=== PATIENT | male | born 1975 | race Caucasian/White ===

== ENCOUNTER → 2017-06-15 | Outpatient (CLI) | payer OTHER ==
[~2017-06-15] MED LIST: GADOBENATE DIMEGLUMINE 10 ML IV ONE; ISOVUE-M 200 20 ML VIAL IT ONE
== END | disposition home or self-care (01) ==
LOC: RAH 08:04
PROVIDERS: ATTEND General Practice
DX: M19.012 Primary osteoarthritis, left shoulder (principal)
CPT/HCPCS: 23350; 73223; 77002; A9577; Q9966

== ENCOUNTER 2018-07-16 08:54 | Day surgery (SDC) | payer OTHER ==
[2018-07-15 15:38] VITALS: BP 149/82
[2018-07-16] VITALS (14 sets, daily range): BP systolic 120–143; BP diastolic 65–93
[~2018-07-16 08:54] MED LIST changes: +AMLO10TA7 PO; +ASPI-555 PO; +ATOR-2 PO; +BUPR75TA8 PO; +FAMO-135 PO; -GADOBENATE DIMEGLUMINE 10 ML IV ONE; +IBUP-2071 PO; -ISOVUE-M 200 20 ML VIAL IT ONE; +MIRT30TA6 PO; +TRAZ-187 PO
[2018-07-16] MEDS ORDERED: LACTATED RINGERS 1000ML 1,000 ML IV ONE (09:26)
[2018-07-16] MEDS: CEFAZOLIN SODIUM 1 GM VIAL ONE ×2 (09:26→11:45)
--- NOTE | 2018-07-16 10:00 | NUR ---
SURGICAL PREP pt left shoulder clipper prepped and wiped with chlorhexidine 2% by Kelli Solis Addendum: 07/16/18 at 1244 by JERROD OCONNELL RN RN Amended: Links added.
[2018-07-16] MEDS ORDERED: EPINEPHRINE 1 MG/ML 30ML VIAL IJ ONE (11:11)
[2018-07-16] MEDS ORDERED: MIDAZOLAM HCL 1 MG/ML 2ML VIAL ONE (11:25)
[2018-07-16] MEDS ORDERED: SUCCINYLCHOLINE 200MG/10ML SYR ONE (11:25)
[2018-07-16] MEDS ORDERED: LIDOCAINE PF 2% 5ML ABBOJECT ONE (11:25)
[2018-07-16] MEDS ORDERED: NEOSTIGMINE 5MG/5ML SYR IV ONE (11:26)
[2018-07-16] MEDS ORDERED: ROCURONIUM 10MG/1ML SYR 10 MG/ML ML ONE ×2 (11:26→12:04)
[2018-07-16] MEDS ORDERED: ONDANSETRON HCL 4 MG/2 ML VIAL ONE (11:26)
[2018-07-16] MEDS ORDERED: PROPOFOL 10 MG/ML 20ML VIAL IV ONE (11:26)
[2018-07-16] MEDS ORDERED: FENTANYL CITRATE PF 50 MCG/1 ML 2ML VIAL ONE (11:27)
[2018-07-16] MEDS ORDERED: ROPIVACAINE 0.5% 5MG/ML 30ML IJ ONE ×2 (11:31→11:32)
[2018-07-16] MEDS ORDERED: GLYCOPYRROLATE 1 MG/5 ML SYRINGE ONE (12:01)
[2018-07-16] MEDS ORDERED: PHENYLEPHRINE HCL 10 MG/ML 1ML VIAL IV ONE (13:39)
[2018-07-16] MEDS ORDERED: TYL3 PO (13:47)
[2018-07-16] MEDS ORDERED: CEPH500B PO (13:47)
--- NOTE | 2018-07-16 15:02 | NUR ---
POST-PROCEDURE RECEIVED FROM RR VIA STRETCHER BY MARCIO RICHARDS S/P LEFT SHOULDER ARTHROSCOPY, SUBACROMIAL DECOMPRESSION, DISTAL CLAVICLE RESECTION, BURSECTOMY. AWAKE IN NO ACUTE DISTRESS. CONNECTED TO CONTINUOUS CARDIOPULMONARY MONITORING. ICE PACK APPLIED TO LEFT SHOULDER. ARM SLING IN PLACE TO LEFT ARM.
--- NOTE | 2018-07-16 15:55 | NUR ---
EDUCATION DR. FAITH INSTRUCTION SHEET, MED REC, AND PT EDUCATION REVIEWED WITH PT AND . BOTH VERBALIZED UNDERSTANDING. OPPORTUNITY GIVEN TO ASK QUESTIONS. NO QUESTIONS OR CONCERNS VERBALIZED.
--- NOTE | 2018-07-16 16:06 | NUR ---
DISCHARGE DISCHARGED VIA W/C. DENIES PAIN. LEFT ARM REMAINS IN SLING, DRESSING CD&I.
== END 2018-07-16 16:06 | disposition home or self-care (01) ==
LOC: DAH 08:54
PROVIDERS: ATTEND Orthopaedic Surgery
DX: M75.42 Impingement syndrome of left shoulder (principal); M19.012 Primary osteoarthritis, left shoulder; Z68.34 Body mass index [BMI] 34.0-34.9, adult; I10 Essential (primary) hypertension; E78.00 Pure hypercholesterolemia, unspecified; Z98.890 Other specified postprocedural states; K21.9 Gastro-esophageal reflux disease without esophagitis; F32.9 Major depressive disorder, single episode, unspecified; G43.909 Migraine, unspecified, not intractable, without status migrainosus; Z79.899 Other long term (current) drug therapy; G89.29 Other chronic pain; Z88.8 Allergy status to other drugs, medicaments and biological substances; E78.5 Hyperlipidemia, unspecified
CPT/HCPCS: 29824; 29826; 64415; A4565; A4600; A4649 ×3; A4930; A6204; G0168; J0171; J0330; J0690; J2001; J2250; J2370; J2405; J2704; J2710; J2795 ×2; J3010; J3490; J7030; J7120 ×2

== ENCOUNTER 2019-11-03 14:49 | Emergency (ER) | payer OTHER ==
[~2019-11-03 14:49] MED LIST changes: -ASPI-555 PO; +ASPI-556 PO; +CEPH500B PO; +TYL3 PO
[2019-11-03 15:28] LABS: BASOPHILS % (AUTO) 0.6 % (0.0-5.0); EOSINOPHILS % (AUTO) 1.8 % (0.0-8.0); HEMATOCRIT 40.8 % (42-54); LYMPHOCYTES % (AUTO) 21.3 % (21.0-51.0); MEAN CORPUSCULAR HEMOGLOBIN 29.5 pg (27.0-33.0); MEAN CORPUSCULAR HGB CONC 34.3 g/dL (32.0-36.0); MEAN CORPUSCULAR VOLUME 86.1 fL (79-99); MONOCYTES % (AUTO) 7.9 % (3.0-13.0); PLATELET COUNT (AUTO) 326 K/uL (130-400); RED BLOOD CELL COUNT(AUTO) 4.74 MIL/uL (4.50-6.20); RED CELL DISTRIBUTION WIDTH 13.4 % (11.0-15.5); WHITE BLOOD COUNT (AUTO) 9.7 K/uL (4.8-10.8)
[2019-11-03 15:36] LABS: CREATININE 1.2 mg/dL (0.5-1.5); POTASSIUM 3.5 mmol/L (3.5-5.1)
[2019-11-03 15:41] LABS: ALBUMIN 3.6 g/dL (3.5-5.0); BILIRUBIN,TOTAL 0.4 mg/dL (0.2-1.0); TOTAL PROTEIN, SERUM 7.4 g/dL (6.0-8.3)
== END 2019-11-03 17:44 | disposition home or self-care (01) ==
LOC: EDH 14:49
DX: M25.562 Pain in left knee (principal); I10 Essential (primary) hypertension; E78.00 Pure hypercholesterolemia, unspecified; Z72.0 Tobacco use; Z88.6 Allergy status to analgesic agent
CPT/HCPCS: 36415; 80053; 82550; 85025; 87040; 93971

== ENCOUNTER 2020-04-12 16:09 | Emergency (ER) | payer OTHER ==
[~2020-04-12 16:09] MED LIST changes: +AMLO-258 PO; -AMLO10TA7 PO
[2020-04-12 16:55] LABS: BASOPHILS % (AUTO) 0.6 % (0.0-5.0); EOSINOPHILS % (AUTO) 0.7 % (0.0-8.0); HEMATOCRIT 42.6 % (42-54); LYMPHOCYTES % (AUTO) 17.3 % (21.0-51.0); MEAN CORPUSCULAR HEMOGLOBIN 28.9 pg (27.0-33.0); MEAN CORPUSCULAR VOLUME 84.9 fL (79-99); MONOCYTES % (AUTO) 7.2 % (3.0-13.0); NEUTROPHILS % (AUTO) 73.9 % (40.0-77.0); PLATELET COUNT (AUTO) 279 K/uL (130-400); RED BLOOD CELL COUNT(AUTO) 5.02 MIL/uL (4.50-6.20); WHITE BLOOD COUNT (AUTO) 9.6 K/uL (4.8-10.8)
[2020-04-12 17:10] LABS: CREATININE 1.1 mg/dL (0.5-1.5); POTASSIUM 3.6 mmol/L (3.5-5.1)
[2020-04-12 17:13] LABS: INR 0.98 (0.85-1.15); PROTHROMBIN TIME 10.7 SEC (9.6-11.6)
[2020-04-12 17:24] LABS: ALBUMIN 3.6 g/dL (3.5-5.0); BILIRUBIN,TOTAL 1.8 mg/dL (0.2-1.0); TOTAL PROTEIN, SERUM 7.2 g/dL (6.0-8.3)
[2020-04-12 17:25] LABS: B-TYPE NATRIURETIC PEPTIDE 35 pg/mL (0-100)
[2020-04-12 18:03] LABS: APPEARANCE,URINE Clear (CLEAR); BILIRUBIN,URINE Negative (NEGATIVE); COLOR,URINE Yellow (YELLOW); GLUCOSE, URINE (UA) Negative (NEGATIVE); KETONES,URINE Negative (NEGATIVE); LEUKOCYTE ESTERASE ,URINE Negative (NEGATIVE); NITRATE,URINE Negative (NEGATIVE); OCCULT BLOOD,URINE Negative (NEGATIVE); PH,URINE 5.5 (5.0-8.0); PROTEIN,URINE Negative (NEGATIVE); UROBILINOGEN,URINE 0.2 mg/dL (0.2-1.0)
[2020-04-12 18:10] LABS: AMPHET/METH SCREEN,URINE NEGATIVE (NEGATIVE); BARBITURATE SCREEN, URINE NEGATIVE (NEGATIVE); BENZODIAZEPINES SCREEN,URINE NEGATIVE (NEGATIVE); CANNABINOID SCREEN,URINE NEGATIVE (NEGATIVE); COCAINE SCREEN,URINE NEGATIVE (NEGATIVE); OPIATE SCREEN,URINE NEGATIVE (NEGATIVE); PHENCYCLIDINE SCREEN,URINE NEGATIVE (NEGATIVE)
[2020-04-13] MEDS ORDERED: MELO-106 PO (23:18)
[2020-04-13] MEDS ORDERED: FAMO20TA8 PO (23:18)
[2020-04-16] MEDS ORDERED: METO25 PO (08:48)
[2020-04-16] MEDS ORDERED: ATOR-2 PO (08:48)
[2020-04-16] MEDS ORDERED: LISI10TA24 PO (08:48)
[2020-04-16] MEDS ORDERED: TICA90TA PO (08:48)
== END 2020-04-12 19:41 | disposition left against medical advice (07) ==
LOC: EDH 16:09
DX: R07.89 Other chest pain (principal); M62.82 Rhabdomyolysis; E78.00 Pure hypercholesterolemia, unspecified; I10 Essential (primary) hypertension; Z88.5 Allergy status to narcotic agent
CPT/HCPCS: 36415; 71045; 80053; 80305; 81003; 82550; 83880; 84484; 85025; 85610; 85730; 93005

== ENCOUNTER 2020-04-13 16:57 | Inpatient (IN) | payer OTHER ==
[~2020-04-13] VITALS: Ht 175.3 cm; Wt 101.6 kg
[~2020-04-13 16:57] MED LIST changes: -FAMO-135 PO; +FAMO-290 PO; +MIRT-93 PO; -MIRT30TA6 PO
[2020-04-13 17:20] LABS: APPEARANCE,URINE Clear (CLEAR); BILIRUBIN,URINE Negative (NEGATIVE); COLOR,URINE Yellow (YELLOW); GLUCOSE, URINE (UA) Negative (NEGATIVE); KETONES,URINE Negative (NEGATIVE); LEUKOCYTE ESTERASE ,URINE Negative (NEGATIVE); NITRATE,URINE Negative (NEGATIVE); OCCULT BLOOD,URINE Negative (NEGATIVE); PROTEIN,URINE Negative (NEGATIVE); UROBILINOGEN,URINE 0.2 mg/dL (0.2-1.0)
[2020-04-13] MEDS ORDERED: NITROGLYCERIN 0.4 MG SL TAB SL ONE ×2 (17:21→20:41)
[2020-04-13] MEDS ORDERED: NITROGLYCERIN 1GM OINT 1 INCH/1GM TD ONE (17:22)
[2020-04-13 17:24] LABS: BASOPHILS % (AUTO) 0.6 % (0.0-5.0); EOSINOPHILS % (AUTO) 1.3 % (0.0-8.0); HEMATOCRIT 44.7 % (42-54); LYMPHOCYTES % (AUTO) 21.7 % (21.0-51.0); MEAN CORPUSCULAR HEMOGLOBIN 28.7 pg (27.0-33.0); MEAN CORPUSCULAR HGB CONC 33.3 g/dL (32.0-36.0); MEAN CORPUSCULAR VOLUME 86.1 fL (79-99); MONOCYTES % (AUTO) 8.5 % (3.0-13.0); NEUTROPHILS % (AUTO) 67.6 % (40.0-77.0); PLATELET COUNT (AUTO) 288 K/uL (130-400); RED BLOOD CELL COUNT(AUTO) 5.19 MIL/uL (4.50-6.20); RED CELL DISTRIBUTION WIDTH 13.7 % (11.0-15.5)
[2020-04-13 17:36] LABS: POTASSIUM 3.2 mmol/L (3.5-5.1)
[2020-04-13 17:37] LABS: INR 0.98 (0.85-1.15); PROTHROMBIN TIME 10.7 SEC (9.6-11.6)
[2020-04-13 17:38] LABS: PARTIAL THROMBOPLASTIN TIME 27.4 SEC (26.3-35.5)
[2020-04-13 17:58] LABS: ALBUMIN 3.6 g/dL (3.5-5.0); BILIRUBIN,TOTAL 0.3 mg/dL (0.2-1.0); TOTAL PROTEIN, SERUM 7.4 g/dL (6.0-8.3)
[2020-04-13] MEDS ORDERED: 0.9%NACL 1000ML 1,000 ML IV ONE (18:08)
[2020-04-13] MEDS ORDERED: KCL 20 MEQ ERTAB PO ONE ×2 (18:08→21:13)
[2020-04-13] MEDS: ASPIRIN 325MG EC TAB PO SCH (19:00)
[2020-04-13] MEDS ORDERED: POTASSIUM CHLORIDE 10% ELIXIR 20 MEQ/15 ML UDCUP PO PRN (19:00)
[2020-04-13] MEDS ORDERED: POTASSIUM CHLORIDE 20MEQ/100ML 100 ML IV PRN ×2 (19:00)
[2020-04-13] MEDS ORDERED: KCL 20 MEQ ERTAB PO PRN (19:00)
[2020-04-13] MEDS: LACTATED RINGERS 1000ML 1,000 ML IV SCH ×2 (19:00→20:15)
[2020-04-13 20:12] LABS: AMPHET/METH SCREEN,URINE NEGATIVE (NEGATIVE); BARBITURATE SCREEN, URINE NEGATIVE (NEGATIVE); BENZODIAZEPINES SCREEN,URINE NEGATIVE (NEGATIVE); CANNABINOID SCREEN,URINE NEGATIVE (NEGATIVE); COCAINE SCREEN,URINE NEGATIVE (NEGATIVE); OPIATE SCREEN,URINE NEGATIVE (NEGATIVE); PHENCYCLIDINE SCREEN,URINE NEGATIVE (NEGATIVE)
[2020-04-13] MEDS ORDERED: ACETAMINOPHEN 325 MG TAB PO PRN ×2 (20:15)
[2020-04-13] MEDS ORDERED: NITROGLYCERIN 0.4 MG SL TAB SL PRN (20:15)
[2020-04-13] MEDS ORDERED: DIPHENHYDRAMINE HCL 25 MG CAPSULE PO PRN (20:15)
[2020-04-13] MEDS ORDERED: ONDANSETRON 4MG INJ IV PRN (20:15)
[2020-04-13] MEDS ORDERED: DiphenhydrAMINE HCL 50 MG/ML VIAL IV PRN (20:15)
[2020-04-13] MEDS ORDERED: MAG/ALUM/SIMETH 30 ML UDCUP PO PRN (20:15)
[2020-04-13] MEDS ORDERED: LACTULOSE 20 GM/30 ML UDCUP PO PRN (20:15)
[2020-04-13] MEDS ORDERED: GUAIFENESIN-DM 200/20 MG 10 ML PO PRN (20:15)
[2020-04-13] MEDS ORDERED: MORPHINE 2 MG SYG IV PRN ×2 (20:15)
[2020-04-13] MEDS ORDERED: ALBUTEROL 0.083% 2.5 MG/3 ML INH IH PRN (20:15)
[2020-04-13] MEDS ORDERED: LACTATED RINGERS 1000ML 1,000 ML IV ONE (20:42)
[2020-04-13] MEDS ORDERED: METOPROLOL TARTRATE 25 MG TAB ONE (20:42)
[2020-04-13] MEDS ORDERED: MORPHINE 2 MG SYG ONE (20:42)
[2020-04-13] MEDS ORDERED: FAMOTIDINE 20MG VIAL IV ONE (20:44)
[2020-04-13] MEDS: METOPROLOL TARTRATE 25 MG TAB PO SCH (21:00)
[2020-04-13] MEDS: FAMOTIDINE 20MG VIAL IV SCH (21:00)
[2020-04-13 22:29] LABS: TROPONIN I 0.13 ng/mL (0.00-0.06)
[2020-04-13 22:50] VITALS: BP 120/71
[2020-04-13] MEDS ORDERED: FAMO20TA8 PO ×2 (23:18)
[2020-04-13] MEDS ORDERED: MELO-106 PO ×2 (23:18)
[2020-04-14] MEDS: LACTATED RINGERS 1000ML 1,000 ML IV SCH ×6 (03:25→21:24)
[2020-04-14 04:00] VITALS: BP 132/76
[2020-04-14] MEDS ORDERED: HEPARIN 25,000 UNITS/250ML D5W 250 ML IV SCH (04:00)
[2020-04-14 06:05] LABS: BASOPHILS % (AUTO) 0.5 % (0.0-5.0); EOSINOPHILS % (AUTO) 1.1 % (0.0-8.0); HEMATOCRIT 42.7 % (42-54); LYMPHOCYTES % (AUTO) 25.2 % (21.0-51.0); MEAN CORPUSCULAR HEMOGLOBIN 28.9 pg (27.0-33.0); MEAN CORPUSCULAR HGB CONC 33.5 g/dL (32.0-36.0); MEAN CORPUSCULAR VOLUME 86.3 fL (79-99); MONOCYTES % (AUTO) 8.7 % (3.0-13.0); NEUTROPHILS % (AUTO) 64.2 % (40.0-77.0); PLATELET COUNT (AUTO) 279 K/uL (130-400); RED BLOOD CELL COUNT(AUTO) 4.95 MIL/uL (4.50-6.20); WHITE BLOOD COUNT (AUTO) 9.8 K/uL (4.8-10.8)
[2020-04-14 07:02] LABS: ALBUMIN 3.2 g/dL (3.5-5.0); BILIRUBIN,TOTAL 0.3 mg/dL (0.2-1.0); CREATININE 0.9 mg/dL (0.5-1.5); TOTAL PROTEIN, SERUM 6.8 g/dL (6.0-8.3)
[2020-04-14] MEDS: FAMOTIDINE 20MG VIAL IV SCH ×2 (08:27→21:24)
[2020-04-14] MEDS: METOPROLOL TARTRATE 25 MG TAB PO SCH ×2 (08:28→21:23)
[2020-04-14] MEDS: ASPIRIN 325MG EC TAB PO SCH (08:28)
[2020-04-14] MEDS ORDERED: AMLODIPINE 5 MG TAB PO SCH (09:00)
[2020-04-14] MEDS ORDERED: ENOXAPARIN SODIUM 40 MG/0.4 ML SYRINGE SQ SCH (09:00)
[2020-04-14] MEDS ORDERED: MIDAZOLAM HCL 1 MG/ML 2ML VIAL ONE (11:15)
[2020-04-14] MEDS ORDERED: HEPARIN 10,000 UNIT/10ML (1,000 UNIT/ML) VIAL ONE (11:15)
[2020-04-14] MEDS ORDERED: IOHEXOL-350 75 ML VIAL IV ONE (11:15)
[2020-04-14] MEDS ORDERED: IOHEXOL 350 MG/ML 100ML INFUS..BTL IV ONE (11:15)
[2020-04-14] MEDS ORDERED: FENTANYL CITRATE PF 50 MCG/1 ML 2ML VIAL ONE (11:16)
[2020-04-14] MEDS ORDERED: LIDOCAINE HCL 400MG/20ML VIAL ONE (11:16)
[2020-04-14] MEDS ORDERED: NICARDIPINE 25MG INJ IV ONE (11:17)
[2020-04-14] MEDS ORDERED: NITROGLYCERIN 2 MG VIAL IV ONE (11:17)
[2020-04-14 12:01] VITALS: BP 147/86
[2020-04-14] MEDS ORDERED: HEPARIN 5,000 UNIT VIAL ONE (13:17)
[2020-04-14] MEDS ORDERED: HEPARIN 5,000 UNIT VIAL IV PRN (14:45)
[2020-04-14 16:09] VITALS: BP 146/86
[2020-04-14] MEDS ORDERED: NON-FORMULARY MEDICATION 1 EACH (Atorvastatin Calcium 80 MG) PO SCH (21:00)
[2020-04-14] MEDS: TRAZODONE HCL 100 MG TABLET PO SCH (21:23)
[2020-04-14] MEDS: MIRTAZAPINE 15 MG TABLET PO SCH (21:24)
[2020-04-15 00:08] VITALS: BP 159/90
[2020-04-15] MEDS: LACTATED RINGERS 1000ML 1,000 ML IV SCH ×6 (02:28→19:43)
[2020-04-15 04:06] LABS: BASOPHILS % (AUTO) 0.5 % (0.0-5.0); HEMATOCRIT 43.3 % (42-54); LYMPHOCYTES % (AUTO) 28.2 % (21.0-51.0); MEAN CORPUSCULAR HEMOGLOBIN 27.9 pg (27.0-33.0); MEAN CORPUSCULAR HGB CONC 32.6 g/dL (32.0-36.0); MEAN CORPUSCULAR VOLUME 85.7 fL (79-99); MONOCYTES % (AUTO) 8.9 % (3.0-13.0); NEUTROPHILS % (AUTO) 61.1 % (40.0-77.0); PLATELET COUNT (AUTO) 261 K/uL (130-400); RED BLOOD CELL COUNT(AUTO) 5.05 MIL/uL (4.50-6.20); RED CELL DISTRIBUTION WIDTH 13.9 % (11.0-15.5); WHITE BLOOD COUNT (AUTO) 8.8 K/uL (4.8-10.8)
[2020-04-15 04:50] LABS: ALBUMIN 3.3 g/dL (3.5-5.0); BILIRUBIN,TOTAL 0.3 mg/dL (0.2-1.0); CREATININE 0.9 mg/dL (0.5-1.5); CRP QUANTITATIVE 11.5 mg/L (0.00-9.0); POTASSIUM 3.7 mmol/L (3.5-5.1); TOTAL PROTEIN, SERUM 6.7 g/dL (6.0-8.3)
[2020-04-15 08:00] VITALS: BP 143/89
[2020-04-15] MEDS ORDERED: IOHEXOL 350 MG/ML 100ML INFUS..BTL IV ONE (08:31)
[2020-04-15] MEDS ORDERED: FENTANYL CITRATE PF 50 MCG/1 ML 2ML VIAL ONE (08:31)
[2020-04-15] MEDS ORDERED: MIDAZOLAM HCL 1 MG/ML 2ML VIAL ONE (08:31)
[2020-04-15] MEDS ORDERED: IOHEXOL-350 75 ML VIAL IV ONE ×4 (08:31→10:11)
[2020-04-15] MEDS ORDERED: HEPARIN 10,000 UNIT/10ML (1,000 UNIT/ML) VIAL ONE (08:31)
[2020-04-15] MEDS ORDERED: NITROGLYCERIN 2 MG VIAL IV ONE (08:31)
[2020-04-15] MEDS ORDERED: LIDOCAINE HCL 400MG/20ML VIAL ONE (08:31)
[2020-04-15] MEDS ORDERED: NICARDIPINE 25MG INJ IV ONE (08:39)
[2020-04-15] MEDS ORDERED: MELOXICAM 7.5 MG TABLET PO SCH (09:00)
[2020-04-15] MEDS ORDERED: TICAGRELOR 90 MG TABLET ONE (09:31)
[2020-04-15] MEDS ORDERED: EPTIFIBATIDE 2 MG/ML 10 ML VIAL IVP ONE (09:31)
[2020-04-15] MEDS ORDERED: HYDRALAZINE 20MG/ML VIAL ONE (09:56)
[2020-04-15] MEDS ORDERED: ONDANSETRON 4MG INJ ONE (10:41)
[2020-04-15] MEDS ORDERED: ATORVASTATIN 10 MG TABLET PO SCH (10:45)
[2020-04-15] MEDS ORDERED: NITROGLYCERIN 0.4 MG SL TAB SL PRN (10:45)
[2020-04-15 12:00] VITALS: BP 132/80
[2020-04-15] MEDS: FAMOTIDINE 20MG VIAL IV SCH ×2 (12:56→20:46)
[2020-04-15] MEDS: METOPROLOL TARTRATE 25 MG TAB PO SCH ×2 (12:57→20:47)
[2020-04-15] MEDS: 0.9%NACL 1000ML 1,000 ML IV SCH ×2 (12:57→13:21)
[2020-04-15 16:10] VITALS: BP 136/75
[2020-04-15 19:00] VITALS: BP 149/85
[2020-04-15] MEDS: MIRTAZAPINE 15 MG TABLET PO SCH (20:46)
[2020-04-15] MEDS: TICAGRELOR 90 MG TABLET PO SCH (20:46)
[2020-04-15] MEDS: TRAZODONE HCL 100 MG TABLET PO SCH (20:47)
[2020-04-15] MEDS ORDERED: AMLODIPINE 5 MG TAB PO SCH (21:00)
[2020-04-16] VITALS: BP 142/74
[2020-04-16] MEDS: LACTATED RINGERS 1000ML 1,000 ML IV SCH ×5 (03:00→17:18)
[2020-04-16 04:00] VITALS: BP 126/64
[2020-04-16 04:44] LABS: BASOPHILS % (AUTO) 0.5 % (0.0-5.0); HEMATOCRIT 42.2 % (42-54); LYMPHOCYTES % (AUTO) 19.4 % (21.0-51.0); MEAN CORPUSCULAR HEMOGLOBIN 28.5 pg (27.0-33.0); MEAN CORPUSCULAR HGB CONC 33.2 g/dL (32.0-36.0); MEAN CORPUSCULAR VOLUME 85.9 fL (79-99); MONOCYTES % (AUTO) 9.3 % (3.0-13.0); NEUTROPHILS % (AUTO) 69.6 % (40.0-77.0); PLATELET COUNT (AUTO) 264 K/uL (130-400); RED BLOOD CELL COUNT(AUTO) 4.91 MIL/uL (4.50-6.20); RED CELL DISTRIBUTION WIDTH 14.2 % (11.0-15.5); WHITE BLOOD COUNT (AUTO) 8.7 K/uL (4.8-10.8)
[2020-04-16 05:01] LABS: ALBUMIN 3.2 g/dL (3.5-5.0); BILIRUBIN,TOTAL 0.4 mg/dL (0.2-1.0); POTASSIUM 3.9 mmol/L (3.5-5.1); TOTAL PROTEIN, SERUM 6.8 g/dL (6.0-8.3)
[2020-04-16] MEDS ORDERED: METO25 PO ×2 (08:48)
[2020-04-16] MEDS ORDERED: LISI10TA24 PO ×2 (08:48)
[2020-04-16] MEDS ORDERED: ATOR-2 PO ×2 (08:48)
[2020-04-16] MEDS ORDERED: TICA90TA PO ×2 (08:48)
[2020-04-16] MEDS ORDERED: ATORVASTATIN 40 MG TABLET PO SCH (09:00)
[2020-04-16] MEDS ORDERED: LISINOPRIL 10 MG TABLET PO SCH (09:00)
[2020-04-16] MEDS ORDERED: ASPIRIN 81MG CHEW TAB PO SCH (09:00)
[2020-04-16] MEDS: FAMOTIDINE 20MG VIAL IV SCH (09:47)
[2020-04-16] MEDS: METOPROLOL TARTRATE 25 MG TAB PO SCH (09:48)
[2020-04-16] MEDS: TICAGRELOR 90 MG TABLET PO SCH (09:48)
[2020-04-16 09:59] VITALS: BP 140/90
[2020-04-16 12:23] VITALS: BP 168/93
[2020-04-16 12:31] VITALS: BP 157/89
[2020-04-16 16:58] VITALS: BP 147/89
[2020-04-16] MEDS ORDERED: CLOPIDOGREL 300MG TAB PO SCH (18:00)
== END 2020-04-16 19:00 | disposition home or self-care (01) | DRG 246 ==
LOC: EDH 16:57 → EDHIP 20:12 → 3CH 22:16 → 4AH 22:57
PROVIDERS: ADMIT Family Medicine; ATTEND Family Medicine
PROC: 027035Z Dilation of Coronary Artery, One Artery with Two Drug-eluting Intraluminal Devices, Percutaneous Approach (ICD-10-PCS; principal; 2020-04-15)
PROC: 4A023N7 Measurement of Cardiac Sampling and Pressure, Left Heart, Percutaneous Approach (ICD-10-PCS; 2020-04-15)
PROC: B2111ZZ Fluoroscopy of Multiple Coronary Arteries using Low Osmolar Contrast (ICD-10-PCS; 2020-04-15)
DX: I21.4 Non-ST elevation (NSTEMI) myocardial infarction (principal); I50.31 Acute diastolic (congestive) heart failure; M62.82 Rhabdomyolysis; E78.5 Hyperlipidemia, unspecified; E11.9 Type 2 diabetes mellitus without complications; Z20.822 Contact with and (suspected) exposure to COVID-19; F43.10 Post-traumatic stress disorder, unspecified; E78.00 Pure hypercholesterolemia, unspecified; F17.210 Nicotine dependence, cigarettes, uncomplicated; E66.9 Obesity, unspecified; Z68.33 Body mass index [BMI] 33.0-33.9, adult; Z79.1 Long term (current) use of non-steroidal anti-inflammatories (NSAID); Z88.5 Allergy status to narcotic agent; Z88.8 Allergy status to other drugs, medicaments and biological substances; Z79.82 Long term (current) use of aspirin; Z79.899 Other long term (current) drug therapy; Z82.3 Family history of stroke; Z83.3 Family history of diabetes mellitus; Z83.6 Family history of other diseases of the respiratory system; Z80.9 Family history of malignant neoplasm, unspecified; Z82.49 Family history of ischemic heart disease and other diseases of the circulatory system; I11.0 Hypertensive heart disease with heart failure
CPT/HCPCS: 36415; 71045; 80053; 80061; 80305; 82550; 83874; 84484; 85025; 85347; 85610; 85730; 86140; 87426; 93005; 93306; 93356; 93458; 94664; 99156; 99157; 99291; C1769; C9600; G0378; J0360; J1327; J1644; J1650; J2250; J2405; J3010; J3490; J7030; J7120; Q9967; U0003

== ENCOUNTER 2022-07-17 18:39 | Inpatient (IN) | payer OTHER ==
[~2022-07-17] VITALS: Ht 172.7 cm; Wt 103.3 kg
[~2022-07-17 18:39] MED LIST changes: -BUPR75TA8 PO; -CEPH500B PO; -FAMO-290 PO; +FAMO20TA8 PO; -IBUP-2071 PO; +LISI10TA24 PO; +MELO-106 PO; +METO25 PO; +TICA90TA PO; -TYL3 PO
[2022-07-17 19:21] LABS: BASOPHILS % (AUTO) 0.7 % (0.0-5.0); EOSINOPHILS % (AUTO) 1.1 % (0.0-8.0); HEMATOCRIT 44.6 % (42-54); LYMPHOCYTES % (AUTO) 24.8 % (21.0-51.0); MEAN CORPUSCULAR HGB CONC 33.9 g/dL (32.0-36.0); MEAN CORPUSCULAR VOLUME 85.6 fL (79-99); MONOCYTES % (AUTO) 8.1 % (3.0-13.0); NEUTROPHILS % (AUTO) 64.9 % (40.0-77.0); PLATELET COUNT (AUTO) 296 K/uL (130-400); RED BLOOD CELL COUNT(AUTO) 5.21 MIL/uL (4.50-6.20); WHITE BLOOD COUNT (AUTO) 9.1 K/uL (4.8-10.8)
[2022-07-17 19:30] LABS: CREATININE 1.2 mg/dL (0.5-1.5); POTASSIUM 3.6 mmol/L (3.5-5.1)
[2022-07-17 19:35] LABS: ALBUMIN 3.7 g/dL (3.5-5.0); TOTAL PROTEIN, SERUM 7.3 g/dL (6.0-8.3)
[2022-07-17] MEDS ORDERED: PANTOPRAZOLE 40 MG/VIAL IVP ONE (20:30)
[2022-07-17 22:14] LABS: APPEARANCE,URINE CLEAR (CLEAR); BILIRUBIN,URINE NEGATIVE (NEGATIVE); COLOR,URINE LIGHT-YELLOW (YELLOW); GLUCOSE, URINE (UA) NEGATIVE (NEGATIVE); KETONES,URINE NEGATIVE (NEGATIVE); LEUKOCYTE ESTERASE ,URINE NEGATIVE Leu/uL (NEGATIVE); NITRATE,URINE NEGATIVE (NEGATIVE); OCCULT BLOOD,URINE NEGATIVE (NEGATIVE); PROTEIN,URINE NEGATIVE (NEGATIVE); UROBILINOGEN,URINE 0.2 mg/dL (0.2-1.0)
[2022-07-17 22:16] LABS: RBC,URINE 0-1 /HPF (0-1); WBC,URINE 0-1 /HPF (0-1)
[2022-07-17] MEDS: PANTOPRAZOLE 40MG INJ 80 MG in 0.9%NACL 100ML 100 ML IVP SCH (23:21)
[2022-07-17] MEDS ORDERED: CLOP75TA32 PO (23:28)
[2022-07-17] MEDS ORDERED: EZET10TA48 PO (23:28)
[2022-07-17] MEDS ORDERED: ATOR40TA69 PO (23:28)
[2022-07-17] MEDS ORDERED: CETI10TA57 PO (23:28)
[2022-07-17] MEDS ORDERED: AMLO-258 PO (23:28)
[2022-07-17] MEDS ORDERED: MIRT-22 PO (23:28)
[2022-07-17] MEDS ORDERED: LISI40TA9 PO (23:28)
[2022-07-17] MEDS ORDERED: METO-391 PO (23:28)
[2022-07-17] MEDS ORDERED: AUD IH (23:38)
[2022-07-18] MEDS ORDERED: HYDROCODONE/ACETAMINOPHEN 5/325 MG TAB PO PRN (00:30)
[2022-07-18] MEDS ORDERED: ONDANSETRON 4MG INJ IV PRN (00:30)
[2022-07-18] MEDS ORDERED: ACETAMINOPHEN WITH CODEINE 1 TAB TAB PO PRN (00:30)
[2022-07-18] MEDS ORDERED: ACETAMINOPHEN 325 MG TAB PO PRN ×2 (00:30)
[2022-07-18] MEDS: 0.9%NACL 1000ML 1,000 ML IV SCH ×2 (04:24→10:07)
[2022-07-18 06:07] LABS: BASOPHILS % (AUTO) 0.5 % (0.0-5.0); EOSINOPHILS % (AUTO) 1.6 % (0.0-8.0); HEMATOCRIT 42.4 % (42-54); LYMPHOCYTES % (AUTO) 26.4 % (21.0-51.0); MEAN CORPUSCULAR HEMOGLOBIN 29.4 pg (27.0-33.0); MEAN CORPUSCULAR HGB CONC 34.2 g/dL (32.0-36.0); MONOCYTES % (AUTO) 8.8 % (3.0-13.0); NEUTROPHILS % (AUTO) 62.5 % (40.0-77.0); PLATELET COUNT (AUTO) 283 K/uL (130-400); RED BLOOD CELL COUNT(AUTO) 4.93 MIL/uL (4.50-6.20); RED CELL DISTRIBUTION WIDTH 13.2 % (11.0-15.5); WHITE BLOOD COUNT (AUTO) 9.5 K/uL (4.8-10.8)
[2022-07-18 06:22] LABS: ALANINE AMINOTRANSFERASE 35 U/L (12-78); ALBUMIN 3.2 g/dL (3.5-5.0); ASPARTATE AMINOTRANSFERASE 17 U/L (10-37); CARBON DIOXIDE 29 mmol/L (21-32); CHLORIDE 106 mmol/L (101-111); CREATININE 1.2 mg/dL (0.5-1.5); GLOMERULAR FILTR. RATE CALC 74 mL/min (>90); GLUCOSE,RANDOM 109 mg/dL (70-105); POTASSIUM 4.4 mmol/L (3.5-5.1); SODIUM SERUM 142 mmol/L (136-145); TOTAL PROTEIN, SERUM 6.6 g/dL (6.0-8.3); UREA NITROGEN, BLOOD 10 mg/dL (7-18)
[2022-07-18 06:25] LABS: CRP QUANTITATIVE < 2.00 mg/L (0.00-9.0)
[2022-07-18 06:28] LABS: INR 0.96 (0.85-1.15); PROTHROMBIN TIME 10.5 SEC (9.6-11.6)
[2022-07-18 06:30] LABS: PARTIAL THROMBOPLASTIN TIME 29.4 SEC (26.3-35.5)
[2022-07-18 07:26] LABS: ERYTHROCYTE SEDIMENTATION RATE 8 MM/HR (0-15)
[2022-07-18 08:26] VITALS: BP 141/84
[2022-07-18] MEDS: PANTOPRAZOLE 40MG INJ 80 MG in 0.9%NACL 100ML 100 ML IVP SCH ×2 (08:30→11:37)
[2022-07-18] MEDS ORDERED: EZETIMIBE 10 MG TAB PO SCH (09:00)
[2022-07-18] MEDS ORDERED: METOPROLOL SUCCINATE 50 MG TAB.SR.24H PO SCH (09:00)
[2022-07-18] MEDS ORDERED: LISINOPRIL 40 MG TABLET PO SCH (09:00)
[2022-07-18] MEDS ORDERED: AMLODIPINE 5 MG TAB PO SCH (09:00)
[2022-07-18 12:00] VITALS: BP 127/75
[2022-07-18] MEDS ORDERED: COMPOUND IV REFRIGERATED 1 EACH IVSOLN MISC PRN (13:00)
[2022-07-18] MEDS ORDERED: MIRTAZAPINE 15 MG TABLET PO SCH (21:00)
[2022-07-18] MEDS ORDERED: ATORVASTATIN 40 MG TABLET PO SCH (21:00)
== END 2022-07-18 15:45 | disposition home or self-care (01) | DRG 392 ==
LOC: EDH 18:39 → EDHIP 07-18 00:23 → 3CH 07-18 08:20
PROVIDERS: ADMIT Hospitalist; ATTEND Hospitalist
DX: R19.5 Other fecal abnormalities (principal); I10 Essential (primary) hypertension; I25.10 Atherosclerotic heart disease of native coronary artery without angina pectoris; K64.8 Other hemorrhoids; F17.210 Nicotine dependence, cigarettes, uncomplicated; E66.9 Obesity, unspecified; Z68.34 Body mass index [BMI] 34.0-34.9, adult; Z88.6 Allergy status to analgesic agent; Z88.8 Allergy status to other drugs, medicaments and biological substances
CPT/HCPCS: 36415; 80053; 81001; 82270; 83690; 85025; 85610; 85651; 85730; 86140; 86850; 86900; 86901; C9113; G0378

== ENCOUNTER → 2022-11-13 | Outpatient (CLI) | payer OTHER ==
[~2022-11-13] MED LIST changes: -ATOR-2 PO; +ATOR40TA69 PO; +AUD IH; +CETI10TA57 PO; +CLOP75TA32 PO; +EZET10TA48 PO; -LISI10TA24 PO; +LISI40TA9 PO; -MELO-106 PO; +METO-391 PO; -METO25 PO; +MIRT-22 PO; -MIRT-93 PO; -TICA90TA PO
== END | disposition home or self-care (01) ==
LOC: SHCH 14:46
PROVIDERS: ATTEND Student in an Organized Health Care Education/Training Program
DX: I11.9 Hypertensive heart disease without heart failure (principal); I25.10 Atherosclerotic heart disease of native coronary artery without angina pectoris
CPT/HCPCS: 93306

== ENCOUNTER 2023-01-20 17:46 | Emergency (ER) | payer OTHER ==
[~2023-01-20] VITALS: Ht 172.7 cm; Wt 102.1 kg
[2023-01-20 18:00] VITALS: BP 124/73; PULSE 80; RESP 16; O2SAT 98
[2023-01-20 18:33] LABS: BASOPHILS # (AUTO) 0.07 K/uL (0.00-0.20); BASOPHILS % (AUTO) 0.5 % (0.0-5.0); EOSINOPHILS # (AUTO) 0.11 K/uL (0.00-0.70); EOSINOPHILS % (AUTO) 0.8 % (0.0-8.0); HEMATOCRIT 46.4 % (42-54); IMMATURE GRANULOCYTE ABSOLUTE 0.08 K/uL (0-1); MEAN CORPUSCULAR HEMOGLOBIN 29.6 pg (27.0-33.0); MEAN CORPUSCULAR HGB CONC 34.1 g/dL (32.0-36.0); MEAN CORPUSCULAR VOLUME 87.1 fL (79-99); MONOCYTES % (AUTO) 7.5 % (3.0-13.0); NEUTROPHILS # (AUTO) 10.1 K/uL (1.8-7.7); NEUTROPHILS % (AUTO) 75.6 % (40.0-77.0); PLATELET COUNT (AUTO) 264 K/uL (130-400); RED BLOOD CELL COUNT(AUTO) 5.33 MIL/uL (4.50-6.20); WHITE BLOOD COUNT (AUTO) 13.4 K/uL (4.8-10.8)
[2023-01-20 18:46] LABS: CREATININE 1.2 mg/dL (0.5-1.5); POTASSIUM 3.9 mmol/L (3.5-5.1)
[2023-01-20 18:52] LABS: ALBUMIN 3.5 g/dL (3.5-5.0); BILIRUBIN,TOTAL 0.5 mg/dL (0.2-1.0); TOTAL PROTEIN, SERUM 7.5 g/dL (6.0-8.3)
== END 2023-01-20 21:14 | disposition left against medical advice (07) ==
LOC: EDH 17:46
DX: R10.9 Unspecified abdominal pain (principal); Z53.21 Procedure and treatment not carried out due to patient leaving prior to being seen by health care provider
CPT/HCPCS: 36415; 80053; 83690; 85025; 99281

== ENCOUNTER 2025-01-26 12:48 | Emergency (ER) | payer OTHER ==
[~2025-01-26] VITALS: Ht 172.7 cm; Wt 102.1 kg
[~2025-01-26 12:48] MED LIST changes: +ATOR-2 PO; -ATOR40TA69 PO; -EZET10TA48 PO; +EZET10TA80 PO; +LISI40TA15 PO; -LISI40TA9 PO; -METO-391 PO; +METO-409 PO; -MIRT-22 PO; +MIRT-93 PO
[2025-01-26] MEDS ORDERED: SULF1TAB42 PO (13:25)
--- NOTE | 2025-01-26 13:25 | ERN ---
ED Note History of Present Illness Stated Complaint: LUMP ON RIGHT GROIN Chief Complaint: Groin Pain Time Seen by MD: 12:58 Dictation: 49-year-old male with induration and drainage to right inguinal area over the past week worse today. No fever no chest pain or shortness of breath. Allergies: Coded Allergies: codeine (Verified Allergy, Unknown, 04/13/20) hydrocodone (Verified Adverse Reaction, Unknown, N/V, 07/15/18) Home Meds Reported Medications Metoprolol Succinate (Metoprolol Succinate) 100 Mg Tab.er.24h, 50 MG PO BID for 30 Days, #30 TAB 0 Refills 08/29/24 Mirtazapine (Mirtazapine) 30 Mg Tablet, 1 TAB PO HS for 30 Days, #30 TAB 0 Refills 08/29/24 Lisinopril (Lisinopril) 40 Mg Tablet, 20 MG PO HS for 30 Days, #30 TAB 0 Refills 08/29/24 Atorvastatin Calcium (Atorvastatin Calcium) 80 Mg Tablet, 40 MG PO HS for 30 Days, #30 TAB 0 Refills 08/29/24 Albuterol Sulfate (Albuterol Sulfate) 2.5 Mg/0.5 Ml Vial.neb, 2.5 MG IH AD, INH 07/17/22 Clopidogrel Bisulfate (Clopidogrel) 75 Mg Tablet, 75 MG PO DAILY, TAB 07/17/22 Cetirizine HCl (Cetirizine HCl) 10 Mg Tablet, 10 MG PO DAILY, TAB 07/17/22 Ezetimibe (Ezetimibe) 10 Mg Tablet, 10 MG PO DAILY, TAB 07/17/22 Amlodipine Besylate (Amlodipine Besylate) 10 Mg Tablet, 10 MG PO DAILY for 30 Days, #30 TAB 0 Refills 07/17/22 Famotidine (Famotidine) 20 Mg Tablet, 20 MG PO BID, TAB 04/13/20 Trazodone HCl (Trazodone HCl) 100 Mg Tablet, 200 MG PO HS, TAB 07/15/18 Aspirin (Aspir 81) 81 Mg Tablet.dr, 81 MG PO DAILY, TAB 07/15/18 Past Medical History Past Medical History: High Cholesterol, Heart Disease, Hypertension Additional Past Medical Hx: INTERNAL HEMMORHOIDS Surgical History: Other Surgical History Other: HEART STENT, KNEE, LEFT SHOULDER Review of System Dictation Constitutional: Negative for fever,chills, and weight loss Eyes: Negative for injury, pain,redness, and discharge ENT: Negative for injury,pain or swelling Cardiovascular: Negative for chest pain, palpitations, and edema Respiratory: Negative for shortness of breath, cough, and wheezing, Abdomen/GI: Negative for abdominal pain, nausea, vomiting, diarrhea, and constipation Back: Negative for injury and pain : Per HPI MS/Extremity: Negative for injury and deformity Skin: Per HPI Neuro: Negative for headache, weakness, numbness, tingling, and seizure Psych: Negative for suicide ideation, homicidal ideation, and hallucinations Initial Vital Sign VS Vital Signs Date Time Temp Pulse Resp B/P (MAP) Pulse Ox O2 Delivery O2 Flow Rate FiO2 01/26/25 12:49 98.4 70 16 145/86 95 Room Air 01/26/25 13:02 0 21 Physical Exam Dictation General: awake, alert, NAD Head/Face: Normocephalic, atraumatic Eyes: PERRL, EOMI, vision at baseline ENT: oral cavity clear, TMs clear, no signs of infection Neck: Trachea midline, supple, no nuchal rigidity Cardiovascular: RRR, normal S1/S2, No MRGs, no JVD Respiratory: CTAB, no respiratory distress, No rales or wheezes Abdomen: Soft, non-tender, non-distended, normal bowel sounds, no guarding or rebound. Induration and abscess location to the right inguinal area, superficial Skin: Warm, dry, normal turgor, no rash MS/Extremity: Pulses equal, no cyanosis, neurovascular intact, FROM Neuro: COAx4, GCS 15, strength 5/5, CN 2-12 intact, normal cerebellar exam, no rmal gait, Psych: Normal behavior, mood, and affect normal ED Course ED Course Orders Procedure Category Date Status Time Urinalysis Profile LAB 01/26/25 Logged 13:03 Lidocaine Hcl 1% 20ml PHA 01/26/25 In Process Vial (Lidocaine Hc 13:16 Current Medications Medications (Trade) Dose Ordered Sig/Trevor Route PRN Reason Start Time Stop Time Status Last Admin Dose Admin Lidocaine HCl (Lidocaine HCl 1% 20ml Vial) ONCE STAT INJ 01/26/25 13:16 01/26/25 13:18 DC Vital Signs Date Time Temp Pulse Resp B/P (MAP) Pulse Ox O2 Delivery O2 Flow Rate FiO2 01/26/25 13:02 98.4 70 16 145/86 95 Room Air* 0 21 01/26/25 12:49 98.4 70 16 145/86 95 Room Air Medical Decision Making MDM MDM: Differential diagnosis: Rationale: Tests considered and ordered secondary to shared decision making include: Previous outside records reviewed: Old ER visits. Risk of complication and/or morbidity or mortality of patient management: None Medications-Per medication reconciliation Need for hospitalization: Patient does not meet criteria for hospitalization. Need for emergency major/minor surgery: No There are no social concerns with this patient. Prescription drug management Prescriptions will include symptomatic care Patient's prior external medical records from other ER visits were reviewed by me as indicated. Prior testing and results from previous visits were reviewed. Prior tests were taken into account with medical decision making and resource utilization, independent historian/historians were used to obtain complete medical history. I independently interpreted the test that were performed, results were reviewed by me and considered findings on radiology if ordered. Medical management and examination interpretation discussions were had by me with other qualified healthcare professionals as indicated for the patient's care. 49-year-old male with superficial abscess to groin area, I indeed and stable for outpatient antibiotics nontoxic no fever. No signs of Fred's. Procedure Blade Size: 11 I & D Procedure: no betadine prep Progress Local lidocaine used, anesthetized incision made superficial and purulent drainage removed. Good results no complications. DX & DISP Disposition: Discharge Departure Impression: Primary Impression: Groin abscess Condition: Stable Scripts Sulfamethoxazole/Trimethoprim (Bactrim Ds Tablet) 800 Mg-160 Mg Tablet 1 TAB PO BID for 7 Days, #14 TAB 0 Refills Prov: LUIS ROMANO MD 01/26/25 Referrals: CRYSTAL ROY MD (PCP) LUIS ROMANO MD Jan 26, 2025 13:25
[2025-01-26] MEDS: LIDOCAINE HCL 1% 20 ML VIAL INJ STA (13:27)
[2025-01-26 13:58] VITALS: BP 138/74; PULSE 74; RESP 16; TEMP 98.4; O2SAT 95
== END 2025-01-26 14:00 | disposition home or self-care (01) ==
LOC: EDH 12:48
DX: L02.214 Cutaneous abscess of groin (principal); I11.9 Hypertensive heart disease without heart failure; E78.00 Pure hypercholesterolemia, unspecified; Z88.5 Allergy status to narcotic agent; Z88.6 Allergy status to analgesic agent; Z79.82 Long term (current) use of aspirin; Z79.02 Long term (current) use of antithrombotics/antiplatelets; Z79.899 Other long term (current) drug therapy; Z95.5 Presence of coronary angioplasty implant and graft
CPT/HCPCS: 99283; 10060; J2003